=== PATIENT | male | born 1945 | race Caucasian/White ===

== ENCOUNTER → 2022-04-27 | Outpatient (CLI) | payer MEDICARE, OTHER ==
[2022-04-27 12:37] LABS: Source, Urine Clean Catch
[2022-04-27 12:53] LABS: Bacteria Not Seen /hpf; Red Blood Cells, Urine Not Seen /hpf (0-2); Squamous Epithelial Cells Rare /hpf (Few); White Blood Cells, Urine Not Seen /hpf (0-5)
== END | disposition home or self-care (01) ==
LOC: LAB SHORT 12:36
PROVIDERS: Family Medicine
DX: R31.0 Gross hematuria (principal)
CPT/HCPCS: 81015

== ENCOUNTER → 2022-11-01 | Outpatient (CLI) | payer MEDICARE, OTHER ==
[2022-11-01 14:28] LABS: Alanine Aminotransfer (ALT/SGP 39 U/L (12-78); Albumin/Globulin Ratio 1.3 (0.8-1.8); Alk Phos 72 U/L (50-136); Anion Gap 8 mmol/L (6-16); Aspartate Aminotrans (AST/SGOT 28 U/L (12-37); Bilirubin, Total 0.7 mg/dL (0.1-1.0); Blood Urea Nitrogen 11 mg/dL (8-24); Bun/Creatinine Ratio 13.8 (12.0-20.0); CHOL/HDL RATIO 2.1; CO2, Blood 25 mmol/L (21-32); Calcium, Blood 9.2 mg/dL (8.5-10.1); Chloride, Blood 110 mmol/L (98-108); Cholesterol 146 mg/dL (50-200); Globulin, Blood 3.1 g/dL (2.2-4.0); Glomerular Filtration Rate 90 (60-); Glucose, Blood 111 mg/dL (70-99); HDL Cholesterol 69 mg/dL (>39); LDL/HDL RATIO 0.8; Low Density Lipoprotein Chol 54 mg/dL (0-110); Potassium, Blood 4.3 mmol/L (3.5-5.5); Sodium, Blood 143 mmol/L (136-145); Total Protein, Blood 7.1 g/dL (6.4-8.2); Triglycerides 115 mg/dL (30-160); Very Low Density Lipoprot Chol 23 mg/dL (6-32)
== END | disposition home or self-care (01) ==
LOC: LAB SHORT 09:32 → LAB 09:32
PROVIDERS: Family Medicine
DX: E78.5 Hyperlipidemia, unspecified (principal); I10 Essential (primary) hypertension; R73.01 Impaired fasting glucose; R97.20 Elevated prostate specific antigen [PSA]
CPT/HCPCS: 80053; 80061; 83036; 84153

== ENCOUNTER → 2022-11-11 | Outpatient (CLI) | payer MEDICARE, OTHER | LOC: LAB 11:49 → LAB SHORT 11:49 | PROVIDERS: Family Medicine | DX: R53.83 Other fatigue (principal); E53.8 Deficiency of other specified B group vitamins; R89.1 Abnormal level of hormones in specimens from other organs, systems and tissues; R97.20 Elevated prostate specific antigen [PSA] | CPT/HCPCS: 82607; 84153; 84403; 84443 ==

== ENCOUNTER 2024-09-26 11:41 | Day surgery (SDC) | payer MEDICARE, OTHER ==
[~2024-09-26] VITALS: Ht 170.2 cm; Wt 72.0 kg
[~2024-09-26 11:41] MED LIST: COENZYME Q10200 MG PO; Crestor40 MG PO; DONEPEZIL HCL10 MG PO; MAGNESIUM OXID500 MG PO; PQQ PO
[2024-09-26 12:23] VITALS: BP 125/78
[2024-09-26] MEDS ORDERED: FINA5 PO (12:24)
[2024-09-26] MEDS ORDERED: NS 1,000 ML IV ONE ×2 (12:45→13:05)
[2024-09-26] MEDS ORDERED: Verapamil HCL 2.5 MG/ML 2ML Injection ONE (12:45)
[2024-09-26] MEDS ORDERED: Nitroglycerin 2 MG/20 ML BTL ONE (12:46)
[2024-09-26] MEDS ORDERED: NS 250 ML IV ONE (12:46)
[2024-09-26] MEDS ORDERED: Midazolam HCl 1MG / ML 2ML Vial ONE (13:05)
[2024-09-26] MEDS ORDERED: FentaNYL Citrate 50 MCG/ML 2 ML Injection ONE (13:05)
[2024-09-26] MEDS ORDERED: Heparin Sodium 1000 Units/ML 10ML MDV ONE (13:05)
[2024-09-26 13:53] VITALS: BP 145/80
[2024-09-26 14:15] VITALS: BP 141/76
[2024-09-26 14:30] VITALS: BP 136/91
[2024-09-26 15:00] VITALS: BP 112/68
--- NOTE | 2024-09-26 15:25 | NUR ---
PT AND S/O VERBALIZES UNDERSTANDING WRITTEN AND VERBAL INSTRUCTIONS. DENIES QUESTIONS OR CONCERNS. VSS. NADN. PT TR BAND FULLY DEFLATED. NO BLEEDING OR HEMATOMA NOTED.
--- NOTE | 2024-09-26 16:10 | NUR ---
PT DRESSES SELF WITHOUT DIFF. VSS. NADN. PT AMBULATES TO RESTROOM AND BACK WITHOUT DIFF. PT IV DC'D. CATH INTACT. PRESSURE DSG APPLIED. PT TR BAND REMOVED. CLOTH DOT AND SPLINT IN PLACE. NO BLEEDING NOTED. PT DC TO HOME VIA S/O BY SARA
== END 2024-09-26 16:10 | disposition home or self-care (01) ==
LOC: MHTC 11:41
DX: I35.0 Nonrheumatic aortic (valve) stenosis (principal); I25.10 Atherosclerotic heart disease of native coronary artery without angina pectoris; I10 Essential (primary) hypertension; E78.00 Pure hypercholesterolemia, unspecified; I47.10 Supraventricular tachycardia, unspecified; Z79.899 Other long term (current) drug therapy; Z88.0 Allergy status to penicillin
CPT/HCPCS: 76937; 93454; 93571; 99152; 99153; C1769; C1887; C1894; J1644; J2250; J3010; J7030; J7050; Q9967